=== PATIENT | female | born 1950 | race Hispanic/Latino ===

== ENCOUNTER → 2022-03-03 | Outpatient (CLI) | payer MEDICARE, OTHER ==
[~2022-03-03] MED LIST: ATOR40TA69 PO; CLOP75TA14 PO; FAMO40TA75 PO; FENO67CA10 PO; FLUT16H NASAL; ISOS30TA92 PO; METO-408 PO; VALS1TAB76 PO
== END | disposition home or self-care (01) ==
LOC: SHCH 15:40
PROVIDERS: ATTEND Internal Medicine Cardiovascular Disease
DX: R06.2 Wheezing (principal); I10 Essential (primary) hypertension
CPT/HCPCS: 93306

== ENCOUNTER → 2023-03-27 | Outpatient (CLI) | payer MEDICARE ==
[~2023-03-27] MED LIST changes: +CLOP-31 PO; -CLOP75TA14 PO; -FENO67CA10 PO; +FENO67CA14 PO
== END | disposition home or self-care (01) ==
LOC: SHCH 10:35
PROVIDERS: ATTEND Internal Medicine Cardiovascular Disease
DX: R06.00 Dyspnea, unspecified (principal)
CPT/HCPCS: 93306

== ENCOUNTER → 2024-01-21 | Outpatient (CLI) | payer MEDICARE | END | disposition home or self-care (01) | LOC: RAH 10:59 | PROVIDERS: ATTEND Internal Medicine Gastroenterology | DX: R10.11 Right upper quadrant pain (principal) | CPT/HCPCS: 78227; A9537 ==

== ENCOUNTER 2024-11-16 06:36 | Day surgery (SDC) | payer MEDICARE ==
[2024-11-15 12:49] VITALS: BP_SYST 160; BP_SYST 180; BP_SYST 197; BP_DIAS 69; BP_DIAS 80; PULSE 78; RESP 16; TEMP 96.6
[2024-11-15 12:49] LABS: BASOPHILS # (AUTO) 0.02 K/uL (0.00-0.20); BASOPHILS % (AUTO) 0.4 % (0.0-5.0); EOSINOPHILS # (AUTO) 0.12 K/uL (0.00-0.70); EOSINOPHILS % (AUTO) 2.5 % (0.0-8.0); IMMATURE GRANULOCYTE ABSOLUTE 0.01 K/uL (0-1); LYMPHOCYTES # (AUTO) 2.2 K/uL (1.0-4.8); LYMPHOCYTES % (AUTO) 45.3 % (21.0-51.0); MEAN CORPUSCULAR HGB CONC 33.8 g/dL (32.0-36.0); MEAN CORPUSCULAR VOLUME 97.7 fL (79-99); MONOCYTES # (AUTO) 0.4 K/uL (0.1-1.0); MONOCYTES % (AUTO) 8.2 % (3.0-13.0); NEUTROPHILS # (AUTO) 2.1 K/uL (1.8-7.7); NEUTROPHILS % (AUTO) 43.4 % (40.0-77.0); PLATELET COUNT (AUTO) 153 K/uL (130-400); RED BLOOD CELL COUNT(AUTO) 3.48 MIL/uL (4.00-5.50); WHITE BLOOD COUNT (AUTO) 4.8 K/uL (4.8-10.8)
[2024-11-15 13:04] LABS: CREATININE 0.7 mg/dL (0.5-1.0); POTASSIUM 3.8 mmol/L (3.5-5.1)
--- NOTE | 2024-11-15 13:06 | EKG ---
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
[2024-11-16] VITALS (17 sets, daily range): BP systolic 123–151; BP diastolic 52–77; PULSE 74–92; RESP 14–18; TEMP 97.1–97.3
[~2024-11-16] VITALS: Ht 154.9 cm; Wt 64.0 kg
[2024-11-16] MEDS: ceFAZolin SODIUM 2 GM VIAL ONE (06:24)
[2024-11-16] MEDS: LACTATED RINGERS 1000ML 1,000 ML IV ONE (06:25)
[~2024-11-16 06:36] MED LIST changes: +ASCO500T20 PO; -ATOR40TA69 PO; +BACL10TA PO; +CALCIUM PO; -CLOP-31 PO; +ERGO500093 PO; +ESTRADIOL VG; +FAMO40TA7 PO; -FAMO40TA75 PO; +FENO120T5 PO; -FENO67CA14 PO; +FLUT15.845 NS; -FLUT16H NASAL; +FOLIC ACID PO; +HC2530O TP; +HYDR12.54 PO; +ICOS1CAP PO; -ISOS30TA92 PO; +LACTATED RINGERS 1000ML IV ONE; +MAGN100T PO; -METO-408 PO; +MVI PO; +OMEP40CA21 PO; +THYR30TA2 PO; -VALS1TAB76 PO; +VITAMIN B12 PO
[2024-11-16] MEDS ORDERED: dexaMETHasone SOD PHOSPHATE 10MG/ML 1ML VIAL ONE (07:07)
[2024-11-16] MEDS ORDERED: LIDOCAINE PF 100MG/5ML (2%) SYRINGE 5ML ONE (07:07)
[2024-11-16] MEDS ORDERED: GLYCOPYRROLATE 0.2 MG/ML 5 ML VIAL ONE (07:08)
[2024-11-16] MEDS ORDERED: SUCCINYLCHOLINE CHLORIDE 20 MG/ML 10 ML VIAL ONE (07:08)
[2024-11-16] MEDS ORDERED: proPOFol 10 MG/ML 20ML VIAL IV ONE (07:08)
[2024-11-16] MEDS ORDERED: ondanSETRON 4MG INJ ONE (07:08)
[2024-11-16] MEDS ORDERED: rocuRONium bROMide 10MG/1ML 5ML VL ONE (07:08)
[2024-11-16] MEDS ORDERED: FENTanyl CITRate PF 50 MCG/1 ML 2ML VIAL ONE ×2 (07:08→08:40)
[2024-11-16] MEDS ORDERED: NEOSTIGMINE METHYLSULFATE 1MG/ML IV ONE (07:08)
[2024-11-16] MEDS ORDERED: MIDAZOLAM HCL 1 MG/ML 2ML VIAL ONE (07:10)
[2024-11-16] MEDS ORDERED: INDOCYANINE GREEN 25 MG VIAL IJ ONE (07:19)
[2024-11-16] MEDS ORDERED: ALBUMIN (HUMAN) 5% 250 ML IV ONE (07:20)
[2024-11-16] MEDS ORDERED: BUPIvacaine/PF 0.5% 30ML VIAL ONE (07:21)
[2024-11-16] MEDS ORDERED: ketaMINE 50MG/ML SYRINGE 50 MG/ML DISP.SYRIN ONE (07:21)
[2024-11-16] MEDS ORDERED: dexaMETHasone SOD PHOSPHATE 4 MG/ML 1ML VIAL ONE (07:35)
[2024-11-16] MEDS: ceFAZolin SODIUM 2 GM VIAL IVPB ONE (08:30)
--- NOTE | 2024-11-16 09:37 | PN ---
GENERAL SURGERY PROGRESS NOTE Date/Time Patient Seen: [11/16/2024 8235 ] Problem List: [ ] Interval History: [Postop day 0. Pain tolerable with p.r.n. medication. ] Physical Examination: ABD: Incisions clean, dry and intact, Dermabond in place Vital Signs (last 8hr) Date Time Temp Pulse Resp B/P (MAP) Pulse Ox O2 Delivery O2 Flow Rate FiO2 11/16/24 07:20 97.2 87 18 151/77 100 Room Air 21 Laboratory: [ ] Hematology Labs: Test 11/15/24 12:40 Range/Units White Blood Count 4.8 4.8-10.8 K/uL Red Blood Count 3.48 L 4.00-5.50 MIL/uL Hemoglobin 11.5 L 12.0-16.0 g/dL Hematocrit 34.0 L 36-48 % Mean Corpuscular Volume 97.7 79-99 fL Mean Corpuscular Hemoglobin 33.0 27.0-33.0 pg Mean Corpuscular Hemoglobin Concent 33.8 32.0-36.0 g/dL Red Cell Distribution Width 13.0 11.0-15.5 % Platelet Count 153 130-400 K/uL Mean Platelet Volume 11.1 H 7.5-10.5 fL Immature Granulocyte % (Auto) 0.2 0-1 % Neutrophils (%) (Auto) 43.4 40.0-77.0 % Lymphocytes (%) (Auto) 45.3 21.0-51.0 % Monocytes (%) (Auto) 8.2 3.0-13.0 % Eosinophils (%) (Auto) 2.5 0.0-8.0 % Basophils (%) (Auto) 0.4 0.0-5.0 % Neutrophils # (Auto) 2.1 1.8-7.7 K/uL Lymphocytes # (Auto) 2.2 1.0-4.8 K/uL Monocytes # (Auto) 0.4 0.1-1.0 K/uL Eosinophils # (Auto) 0.12 0.00-0.70 K/uL Basophils # (Auto) 0.02 0.00-0.20 K/uL Absolute Immature Granulocyte (auto 0.01 0-1 K/uL Nucleated Red Blood Cells 0.0 0.0-0.19 % Chemistry Labs: Test 11/15/24 12:40 Range/Units Sodium Level 138 136-145 mmol/L Potassium Level 3.8 3.5-5.1 mmol/L Chloride Level 104 101-111 mmol/L Carbon Dioxide Level 29 21-32 mmol/L Blood Urea Nitrogen 18 7-18 mg/dL Creatinine 0.7 0.5-1.0 mg/dL Glomerular Filtration Rate Calc 90 >90 mL/min Random Glucose 99 70-105 mg/dL Total Calcium 8.7 8.5-10.1 mg/dL Diagnostics / Radiology: [Copy/Paste Echos/Imaging Report here] Impression and Plan: [ Plan is for discharge home today with outpatient follow up in 5-10 days, sooner if needed. Discussed with the patient and family. They understand and agree.] ASYA JEAN Nov 16, 2024 09:37
--- NOTE | 2024-11-16 09:38 | OP ---
Operative Note: DATE OF PROCEDURE: 11/16/24 SURGEON: WILY JEAN MD FENCE INSTALLER FOREMAN: Steve Jean MD PA-C ANESTHESIA: General and Local ANESTHESIOLOGIST/METAL MACHINE OPERATOR: [facility] [place] anesthesia team PREOPERATIVE DIAGNOSIS: Biliary dyskinesia POSTOPERATIVE DIAGNOSIS: As above SYNOPSIS: Cholecystectomy with IC-Green, IOC without complication PROCEDURE: Robotic assisted Cholecystectomy with IC-Green, IOC ESTIMATED BLOOD LOSS: min, <10cc INDICATIONS: biliary dyskinesia DESCRIPTION OF PROCEDURE: After standard precautions and preparations a veress needle optical trocar were used to enter the abdominal cavity. All other instruments were placed under direct vision. The robotic system was docked in the standard fashion. We retracted the gallbladder cephalad and began dissecting around the infundibulum until a critical view of safety was achieved. We utilized IC green and firefly visual technology to light up the entire ductal system from the cystic duct to the junction of the common hepatic and common bile duct with no signs of any filling defects or obstructions. Clips were placed on the cystic artery and duct and the structures were divided. The gallbladder was from the attachments to the fossa utilizing monopolar cautery. It was placed in an Endo-Catch bag and removed from the abdominal cavity without incident. Prior to ending the case all instrument counts were verified as correct including needles and sponges. The patient was hemostatic with no signs of bile leakage prior to ending the case. WILY JEAN MD Nov 16, 2024 09:38
[2024-11-16] MEDS: MEPERIDINE-PF 50 MG/ML SYG ONE (09:51)
== END 2024-11-16 11:02 | disposition home or self-care (01) ==
LOC: DAH 06:36
PROVIDERS: ATTEND Surgery
DX: K82.8 Other specified diseases of gallbladder (principal); K81.1 Chronic cholecystitis; K21.9 Gastro-esophageal reflux disease without esophagitis; E78.00 Pure hypercholesterolemia, unspecified; M19.90 Unspecified osteoarthritis, unspecified site; Z86.0100 Personal history of colon polyps, unspecified; Z90.710 Acquired absence of both cervix and uterus; Z88.5 Allergy status to narcotic agent; Z88.6 Allergy status to analgesic agent; Z79.899 Other long term (current) drug therapy
CPT/HCPCS: 80048; 85025; 86850; 86900; 86901; 36415; 93005; 47563; 88304; A6260; J1100 ×2; A4663; J7030; A4215 ×2; P9045; J7120; J3010 ×2; J0330; J3490 ×3; J2003; J2250; J2704; J2405; J2710; J0665 ×2; J2175; J0690 ×2; A4930 ×2; A4222; A4221; A4216; A4223 ×2; A4600